=== PATIENT | male | born 1945 | race Caucasian/White ===

== ENCOUNTER 2017-02-11 07:08 | Day surgery (SDC) | payer MEDICARE, BC ==
[2017-02-08 08:23] VITALS: BMI 27.8
[~2017-02-11 07:08] MED LIST: LACTATED RINGERS 1,000 ML IV SCH
[2017-02-11] MEDS ORDERED: LIDOCAINE 1% 20 ML VIAL (10MG/ML) FOR IV START INTRADERMA ONE (07:33)
[2017-02-11 07:37] VITALS: TEMP 97.3
[2017-02-11] MEDS ORDERED: PROPOFOL 10 MG/ML 20 ML VIAL IV ONE (08:36)
--- NOTE | 2017-02-11 09:13 | P.PCN ---
Date of Procedure: 02/11/17 Procedure(s) Performed: Procedure: Colonoscopy and polypectomy. Preoperative diagnosis: Screening for neoplasia, patient has history of polyps. Postoperative diagnosis: 1. Rectal polyp snared but no large polyps or cancer. 2. Diverticulosis with no evidence of acute diverticulitis or strictures. 3. Low -grade internal hemorrhoids not bleeding at the time of this exam. Preparation: HalfLytely prep. Brief clinical history: The patient is a 71-year-old male who I have evaluated on multiple occasions in the past because of family history of colon cancer in his father and brother and personal history of polyps. His last exam was in December 2013. He has no abdominal complaints, bleeding or anemia. Procedure: With the patient on his left lateral decubitus position and after informed consent and adequate sedation, the perianal area was inspected and it did not show any fissures or fistulas. There were no masses felt on digital rectal examination. The Olympus CFQ 160L video colonoscope was then inserted in the rectum in the usual fashion and advanced to the cecum. There were multiple diverticular orifices seen scattered in the sigmoid and occasional rare small orifice on the right side but I saw no evidence of acute diverticulitis or strictures. The mucosa appeared healthy. There was a 1.5 cm polyp in the rectum, close to the anorectal junction, that was snared and removed piecemeal but there were no large polyps or cancer. In the retroflex view in the rectum and while withdrawing the endoscope, low-grade internal hemorrhoids were again noted with no evidence of bleeding. The patient tolerated the procedure well. Plan: The patient was reassured. Discussed dietary measures and local care for hemorrhoids. I am recommending repeat exam in 3 years. He will follow up with you as planned.
[2017-02-11 09:26] VITALS: BP 145/83; PULSE 67; RESP 16
== END 2017-02-11 09:53 | disposition home or self-care (01) ==
LOC: ORWHC2ENDO 07:08
DX: Z12.11 Encounter for screening for malignant neoplasm of colon (principal); Z86.010 Personal history of colon polyps; Z80.0 Family history of malignant neoplasm of digestive organs; D12.8 Benign neoplasm of rectum; K57.30 Diverticulosis of large intestine without perforation or abscess without bleeding; K64.8 Other hemorrhoids; I10 Essential (primary) hypertension; I25.10 Atherosclerotic heart disease of native coronary artery without angina pectoris; Z95.1 Presence of aortocoronary bypass graft; K21.9 Gastro-esophageal reflux disease without esophagitis; E03.9 Hypothyroidism, unspecified; Z85.46 Personal history of malignant neoplasm of prostate; Z79.82 Long term (current) use of aspirin; Z79.899 Other long term (current) drug therapy
CPT/HCPCS: 88305; 45385; J2704

== ENCOUNTER 2017-02-22 11:42 | Emergency (ER) | payer MEDICARE, BC ==
[2017-02-22] MEDS ORDERED: ONDANSETRON 4 MG/2 ML VIAL IVP STA (12:03)
[2017-02-22] MEDS ORDERED: PANTOPRAZOLE 40 MG/10 ML VIAL IVP STA (12:03)
[2017-02-22] MEDS ORDERED: SODIUM CHLORIDE 0.9% 1,000 ML IV STA ×2 (12:03)
--- NOTE | 2017-02-22 12:28 | ED ---
General Adult HPI - General Chief complaint: GI Bleed Stated complaint: blood stool Time Seen by Provider: 02/22/17 12:03 Source: patient, family, RN notes reviewed, old records reviewed Mode of arrival: ambulatory Limitations: no limitations - History of Present Illness Initial comments: This is a 71-year-old mallei for evaluation. Patient coming in for reduction of bright red blood per rectum. Patient does have recent history of colonoscopy , patient did have recent cold mask. Probable removal. Has had some episodic bleeding ever since the procedure for about 10 days he's had occasional bright red bloody bowel movements, patient also states he has history of hemorrhoids. No bowel pain no lightheadedness dizziness or weakness, syncope. Patient is not on blood thinners - Related Data Home Medications Medication Instructions Recorded Confirmed Aspirin 81 mg PO DAILY 06/22/14 02/22/17 Esomeprazole Magnesium [NexIUM] 40 mg PO HS 06/22/14 02/22/17 Ezetimibe/Simvastatin [Vytorin 1 tab PO DAILY 06/22/14 02/22/17 10-40 mg Tablet] Ibuprofen [Motrin] 800 mg PO BID 06/22/14 02/22/17 Imipramine [Tofranil] 10 mg PO DAILY 06/22/14 02/22/17 Ramipril 10 mg PO DAILY 06/22/14 02/22/17 Levothyroxine Sodium [Synthroid] 50 mcg PO DAILY 02/08/17 02/22/17 Calcium Polycarbophil [Fibercon] 625 mg PO BID 02/22/17 02/22/17 Fish Oil 600mg 600 mg PO BID 02/22/17 02/22/17 Potassium 550mg 550 mg PO DAILY 02/22/17 02/22/17 Allergies Allergy/AdvReac Type Severity Reaction Status Date / Time No Known Allergies Allergy Verified 02/22/17 12:29 Review of Systems ROS Statement: Those systems with pertinent positive or pertinent negative responses have been documented in the HPI. ROS Other: All systems not noted in ROS Statement are negative. Past Medical History Past Medical History: GERD/Reflux, Hyperlipidemia, Hypertension, Prostate Disorder, Thyroid Disorder History of Any Multi-Drug Resistant Organisms: None Reported Past Surgical History: Appendectomy, Coronary Bypass/CABG, Prostate Surgery Additional Past Surgical History / Comment(s): triple bypass 1998, Past Anesthesia/Blood Transfusion Reactions: No Reported Reaction Past Psychological History: No Psychological Hx Reported Smoking Status: Never smoker Past Alcohol Use History: Occasional Past Drug Use History: None Reported - Past Family History Father Family Medical History: Cancer General Exam Limitations: no limitations General appearance: alert, in no apparent distress Head exam: Present: atraumatic, normocephalic, normal inspection Eye exam: Present: normal appearance, PERRL, EOMI. Absent: scleral icterus, conjunctival injection, periorbital swelling ENT exam: Present: normal exam, mucous membranes moist Neck exam: Present: normal inspection. Absent: tenderness, meningismus, lymphadenopathy Respiratory exam: Present: normal lung sounds bilaterally. Absent: respiratory distress, wheezes, rales, rhonchi, stridor Cardiovascular Exam: Present: regular rate, normal rhythm, normal heart sounds. Absent: systolic murmur, diastolic murmur, rubs, gallop, clicks GI/Abdominal exam: Present: soft, normal bowel sounds. Absent: distended, tenderness, guarding, rebound, rigid Extremities exam: Present: normal inspection, full ROM, normal capillary refill. Absent: tenderness, pedal edema, joint swelling, calf tenderness Back exam: Present: normal inspection Neurological exam: Present: alert, oriented X3, CN II-XII intact Psychiatric exam: Present: normal affect, normal mood Skin exam: Present: warm, dry, intact, normal color. Absent: rash Course Vital Signs 02/22/17 02/22/17 02/22/17 11:54 13:13 15:30 Temperature 97.5 F L 97.8 F Pulse Rate 362 H 111 H 66 Respiratory 16 16 18 Rate Blood Pressure 138/68 127/71 137/67 O2 Sat by Pulse 97 97 96 Oximetry - Reevaluation(s) Reevaluation #1: Patient consulted regarding desire to keep in hospital and possible bleeding from where polyp was taken, patient states she would rather follow up as an outpatient EKG Findings - EKG Comments: EKG Findings:: EKG shows normal sinus rhythm at 63, MD 140, QRS 100, QTC 411 Medical Decision Making - Medical Decision Making 71 male here for evaluation of bleeding, bleeding status post colonoscopy, patient states he is in no acute distress, concern for causes of bleeding and would like to have GI evaluation, patient does not want to stay in the hospital will follow up as an outpatient - Lab Data Result diagrams: 02/22/17 12:15 02/22/17 12:15 Lab Results 02/22/17 02/22/17 02/22/17 Range/Units 12:15 12:15 12:15 WBC 5.0 (3.8-10.6) k/uL RBC 4.02 L (4.30-5.90) m/uL Hgb 13.0 (13.0-17.5) gm/dL Hct 39.5 (39.0-53.0) % MCV 98.1 (80.0-100.0) fL MCH 32.3 (25.0-35.0) pg MCHC 32.9 (31.0-37.0) g/dL RDW 13.2 (11.5-15.5) % Plt Count 245 (150-450) k/uL Neutrophils % 48 % Lymphocytes % 39 % Monocytes % 8 % Eosinophils % 2 % Basophils % 1 % Neutrophils # 2.4 (1.3-7.7) k/uL Lymphocytes # 1.9 (1.0-4.8) k/uL Monocytes # 0.4 (0-1.0) k/uL Eosinophils # 0.1 (0-0.7) k/uL Basophils # 0.0 (0-0.2) k/uL PT (9.0-12.0) sec INR (<1.1) APTT (22.0-30.0) sec Sodium 142 (137-145) mmol/L Potassium 4.5 (3.5-5.1) mmol/L Chloride 106 (98-107) mmol/L Carbon Dioxide 26 (22-30) mmol/L Anion Gap 10 mmol/L BUN 19 (9-20) mg/dL Creatinine 1.06 (0.66-1.25) mg/dL Est GFR (MDRD) Af Amer >60 (>60 ml/min/1.73 sqM) Est GFR (MDRD) Non-Af >60 (>60 ml/min/1.73 sqM) Glucose 85 (74-99) mg/dL Calcium 8.9 (8.4-10.2) mg/dL Magnesium 2.1 (1.6-2.3) mg/dL Total Bilirubin 0.6 (0.2-1.3) mg/dL AST 25 (17-59) U/L ALT 22 (21-72) U/L Alkaline Phosphatase 56 (38-126) U/L Total Creatine Kinase 102 (55-170) U/L CK-MB (CK-2) 1.3 (0.0-2.4) ng/mL CK-MB (CK-2) Rel Index 1.3 Troponin I <0.012 (0.000-0.034) ng/mL Total Protein 6.6 (6.3-8.2) g/dL Albumin 4.0 (3.5-5.0) g/dL Lipase 56 (23-300) U/L Blood Type Blood Type Recheck Antibody Screen Spec Expiration Date 02/22/17 02/22/17 Range/Units 12:15 12:15 WBC (3.8-10.6) k/uL RBC (4.30-5.90) m/uL Hgb (13.0-17.5) gm/dL Hct (39.0-53.0) % MCV (80.0-100.0) fL MCH (25.0-35.0) pg MCHC (31.0-37.0) g/dL RDW (11.5-15.5) % Plt Count (150-450) k/uL Neutrophils % % Lymphocytes % % Monocytes % % Eosinophils % % Basophils % % Neutrophils # (1.3-7.7) k/uL Lymphocytes # (1.0-4.8) k/uL Monocytes # (0-1.0) k/uL Eosinophils # (0-0.7) k/uL Basophils # (0-0.2) k/uL PT 10.1 (9.0-12.0) sec INR 1.0 (<1.1) APTT 24.2 (22.0-30.0) sec Sodium (137-145) mmol/L Potassium (3.5-5.1) mmol/L Chloride (98-107) mmol/L Carbon Dioxide (22-30) mmol/L Anion Gap mmol/L BUN (9-20) mg/dL Creatinine (0.66-1.25) mg/dL Est GFR (MDRD) Af Amer (>60 ml/min/1.73 sqM) Est GFR (MDRD) Non-Af (>60 ml/min/1.73 sqM) Glucose (74-99) mg/dL Calcium (8.4-10.2) mg/dL Magnesium (1.6-2.3) mg/dL Total Bilirubin (0.2-1.3) mg/dL AST (17-59) U/L ALT (21-72) U/L Alkaline Phosphatase (38-126) U/L Total Creatine Kinase (55-170) U/L CK-MB (CK-2) (0.0-2.4) ng/mL CK-MB (CK-2) Rel Index Troponin I (0.000-0.034) ng/mL Total Protein (6.3-8.2) g/dL Albumin (3.5-5.0) g/dL Lipase (23-300) U/L Blood Type O Positive Blood Type Recheck No Antibody Screen NEGATIVE Spec Expiration Date 02/25/2017 - 2314 Disposition Clinical Impression: Gastrointestinal hemorrhage, Lower gastrointestinal hemorrhage Disposition: HOME SELF-CARE Condition: Fair Instructions: Gastrointestinal Bleeding (ED) Referrals: Reji Singletray MD [Primary Care Provider] - 1-2 days
[2017-02-22] MEDS ORDERED: SODIUM CHLORIDE 0.9% 1,000 ML IV ONE (12:30)
[2017-02-22 12:38] LABS: Basophils % (A) 1 %; CH 32.5; CHCM 33.3; Eosinophils # (A) 0.1 k/uL (0-0.7); Eosinophils % (A) 2 %; HCT 39.5 % (39.0-53.0); HDW 2.68; Luc # (Auto) 0.17; Luc % (Auto) 3; Lymphocytes # (A) 1.9 k/uL (1.0-4.8); Lymphocytes % (A) 39 %; MCH 32.3 pg (25.0-35.0); MCHC 32.9 g/dL (31.0-37.0); MCV 98.1 fL (80.0-100.0); Mean Platelet Volume 7.3; Monocytes # (A) 0.4 k/uL (0-1.0); Monocytes % (A) 8 %; Neutrophils # (A) 2.4 k/uL (1.3-7.7); Neutrophils % (A) 48 %; RBC 4.02 m/uL (4.30-5.90); RDW 13.2 % (11.5-15.5); WBC (Perox) 5.09
[2017-02-22 12:44] LABS: Prothrombin Time 10.1 sec (9.0-12.0)
[2017-02-22 12:45] LABS: Partial Thromboplastin Time 24.2 sec (22.0-30.0)
[2017-02-22 13:03] LABS: Creatine Kinase 102 U/L (55-170)
[2017-02-22 13:05] LABS: ALT 22 U/L (21-72); AST 25 U/L (17-59); Alkaline Phosphatase 56 U/L (38-126); Anion Gap 10 mmol/L; Blood Urea Nitrogen 19 mg/dL (9-20); Calcium 8.9 mg/dL (8.4-10.2); Carbon Dioxide 26 mmol/L (22-30); Chloride 106 mmol/L (98-107); Glucose 85 mg/dL (74-99); Magnesium 2.1 mg/dL (1.6-2.3); Non-African American GFR(MDRD) >60 (>60 ml/min/1.73 sqM); Potassium 4.5 mmol/L (3.5-5.1); Sodium 142 mmol/L (137-145); Total Bilirubin 0.6 mg/dL (0.2-1.3); Total Protein 6.6 g/dL (6.3-8.2)
[2017-02-22 13:16] LABS: Creatine Kinase MB 1.3 ng/mL (0.0-2.4); Troponin I <0.012 ng/mL (0.000-0.034)
[2017-02-22 15:46] VITALS: BP 137/67; PULSE 66; RESP 18; TEMP 97.8
[2017-02-22] MEDS ORDERED: PANTOPRAZOLE 40 MG/10 ML VIAL IVP SCH (21:00)
== END 2017-02-22 15:30 | disposition home or self-care (01) ==
LOC: EC 11:42
DX: K92.2 Gastrointestinal hemorrhage, unspecified (principal); K21.9 Gastro-esophageal reflux disease without esophagitis; E78.5 Hyperlipidemia, unspecified; I10 Essential (primary) hypertension; E07.9 Disorder of thyroid, unspecified; Z98.890 Other specified postprocedural states; Z90.49 Acquired absence of other specified parts of digestive tract; Z79.82 Long term (current) use of aspirin; Z79.899 Other long term (current) drug therapy; Z79.1 Long term (current) use of non-steroidal anti-inflammatories (NSAID)
CPT/HCPCS: 96361 ×3; 96374 ×2; 96375 ×2; 99285 ×2; 36415; 93005; 86900; 86901; 80053; 82550; 82553; 83690; 83735; 84484; 85025; 85610; 85730; 86850; J2405; C9113

== ENCOUNTER 2017-02-26 11:43 | Day surgery (SDC) | payer MEDICARE, BC ==
[2017-02-26] MEDS ORDERED: NA PHOS,M-B/NA PHOS,DI-BA 133 ML ENEMA RECTAL ONE (12:15)
[2017-02-26 12:37] VITALS: TEMP 97
[2017-02-26] MEDS ORDERED: LACTATED RINGERS 1,000 ML IV ONE (12:39)
[2017-02-26] MEDS ORDERED: LIDOCAINE 1% 20 ML VIAL (10MG/ML) FOR IV START INTRADERMA ONE (12:39)
[2017-02-26] MEDS: NA PHOS,M-B/NA PHOS,DI-BA 133 ML ENEMA RECTAL ONE ×2 (12:45→13:03)
[2017-02-26] MEDS ORDERED: LIDOCAINE 1% INJ 10MG/ML (20 ML MDV) ONE (13:22)
[2017-02-26] MEDS ORDERED: PROPOFOL 10 MG/ML 20 ML VIAL IV ONE (13:22)
--- NOTE | 2017-02-26 14:06 | P.PCN ---
Date of Procedure: 02/26/17 Procedure(s) Performed: Procedure: Flexible sigmoidoscopy. Preoperative diagnosis: Persistent rectal bleeding since polypectomy 02/11/2017. Postoperative diagnosis: 1. Sigmoid diverticulosis with no evidence of acute diverticulitis or bleeding. 2. Low-grade internal hemorrhoids with no active bleeding at the time of this exam. 2. A small area of minimal friability at the anorectal junction not spontaneously bleeding. Preparation: 2 Fleet enemas. Sedation: Was provided by anesthesia. Brief clinical history: The patient is a 71-year-old male who I have evaluated on multiple occasions in the past because of family history of colon cancer in his father and brother and personal history of polyps. His last exam was February 11, 2017. He was found to have a 1.5 cm rectal polyp close to the anorectal junction that was removed with the snare piecemeal. He had diverticulosis of the colon and low-grade internal hemorrhoids that were not bleeding. The patient has been having fresh bleeding per rectum since his procedure on a daily basis and was in the emergency room over the weekend and came to see me in the office yesterday. I scheduled this evaluation to assess for the cause of his bleeding for possible intervention. Procedure: With the patient on his left lateral decubitus position and after informed consent and adequate sedation, the perianal area was inspected and it did not show any fissures or fistulas. There were no masses felt on digital rectal examination. The Olympus flexible video sigmoidoscope was used and was inserted in the rectum in the usual fashion and advanced to the mid sigmoid. There were multiple diverticular orifices seen scattered in the sigmoid, but I saw no evidence of acute diverticulitis or bleeding. Normal color fecal material was seen in the proximal areas examined. The mucosa appeared healthy. There was an area of minimal friability at the anorectal junction but it was not showing any evidence of spontaneous bleeding. Low-grade internal hemorrhoids were again noted in both the forward and in the retroflex view in the rectum without any evidence of bleeding. I took multiple pictures then the endoscope was withdrawn. The patient tolerated the procedure well. Plan: The patient will be reassured. I will ask that he stays off ibuprofen until the bleeding is consistently gone. I will give a prescription for Proctocort suppositories which he can use at bed time for 7-10 days then as needed. He will contact me if his problem persists. I will keep you updated on his progress.
[2017-02-26 14:08] VITALS: BP 143/80; PULSE 63; RESP 20
== END 2017-02-26 14:38 | disposition home or self-care (01) ==
LOC: ORWHC2ENDO 11:43
DX: K57.30 Diverticulosis of large intestine without perforation or abscess without bleeding (principal); K64.8 Other hemorrhoids; Z87.19 Personal history of other diseases of the digestive system; K21.9 Gastro-esophageal reflux disease without esophagitis; I10 Essential (primary) hypertension; E78.5 Hyperlipidemia, unspecified; E07.9 Disorder of thyroid, unspecified; Z95.1 Presence of aortocoronary bypass graft; Z79.1 Long term (current) use of non-steroidal anti-inflammatories (NSAID); Z79.82 Long term (current) use of aspirin; Z79.899 Other long term (current) drug therapy
CPT/HCPCS: 45330; J2001; J2704

== ENCOUNTER 2017-05-19 14:25 | Emergency (ER) | payer MEDICARE, BC ==
[2017-05-19] MEDS ORDERED: SODIUM CHLORIDE 0.9% 1,000 ML IV STA (15:46)
--- NOTE | 2017-05-19 16:30 | XR ---
EXAMINATION TYPE: XR chest 1V portable DATE OF EXAM: 05/19/2017 COMPARISON: NONE INDICATION: Fever x1 month TECHNIQUE: Single frontal view of the chest is obtained. FINDINGS: The heart size is normal. The pulmonary vasculature is normal. There is a mild infiltrate within the right lower lobe. Correlate for atelectasis or pneumonia. IMPRESSION: 1. Conical correlation recommended for mild atelectasis or pneumonia right lung base
--- NOTE | 2017-05-19 16:37 | ED ---
Fever HPI - General Chief Complaint: Fever Stated Complaint: Ill, tired Time Seen by Provider: 05/19/17 15:29 Source: patient Mode of arrival: ambulatory Limitations: no limitations - History of Present Illness Initial Comments: Patient's a 72-year-old male presenting with fatigue and fever. Fatigue has been going on for the past month. Patient states he was playing golf yesterday with his sons and was unable to complete 18 holes. He had to stop at the 11th hole. Patient states today he noticed a temperature T-max 101F. Patient takes Motrin regularly for his general pain aches and pains. Patient denies headache, neck pain, cough, runny nose, congestion, shortness breath, chest pain. He denies abdominal pain, nausea, vomiting, diarrhea. He denies dysuria. - Related Data Home Medications Medication Instructions Recorded Confirmed Aspirin 81 mg PO HS 06/22/14 05/19/17 Esomeprazole Magnesium [NexIUM] 40 mg PO HS 06/22/14 05/19/17 Ezetimibe/Simvastatin [Vytorin 1 tab PO HS 06/22/14 05/19/17 10-40 mg Tablet] Ibuprofen [Motrin] 800 mg PO BID 06/22/14 05/19/17 Imipramine [Tofranil] 10 mg PO HS 06/22/14 05/19/17 Ramipril 10 mg PO DAILY 06/22/14 05/19/17 Levothyroxine Sodium [Synthroid] 50 mcg PO DAILY 02/08/17 05/19/17 Calcium Polycarbophil [Fibercon] 625 mg PO BID 02/22/17 05/19/17 Fish Oil 600mg 600 mg PO BID 02/22/17 05/19/17 Potassium 550mg 550 mg PO DAILY 02/22/17 05/19/17 Previous Rx's Medication Instructions Recorded Azithromycin [Zithromax] 500 mg PO DAILY #5 tab 05/19/17 Allergies Allergy/AdvReac Type Severity Reaction Status Date / Time No Known Allergies Allergy Verified 05/19/17 15:44 Review of Systems ROS Statement: Those systems with pertinent positive or pertinent negative responses have been documented in the HPI. Constitutional: +fever and no chills. + Fatigue HENT: No congestion, no rhinorrhea and no sore throat. Eyes: No discharge and no redness. Respiratory: No cough and no shortness of breath. Cardiovascular: No chest pain and no palpitations. Gastrointestinal: No nausea, no vomiting, no abdominal pain and no diarrhea. Genitourinary: No dysuria and no hematuria. Musculoskeletal: No back pain and no arthralgias. Skin: No pallor and no rash. Neurological: No dizziness and No headaches. ROS Other: All systems not noted in ROS Statement are negative. Past Medical History Past Medical History: GERD/Reflux, Hyperlipidemia, Hypertension, Prostate Disorder, Thyroid Disorder History of Any Multi-Drug Resistant Organisms: None Reported Past Surgical History: Appendectomy, Coronary Bypass/CABG, Prostate Surgery Additional Past Surgical History / Comment(s): triple bypass 1998, Past Anesthesia/Blood Transfusion Reactions: No Reported Reaction Past Psychological History: No Psychological Hx Reported Smoking Status: Never smoker Past Alcohol Use History: Occasional Past Drug Use History: None Reported - Past Family History Father Family Medical History: Cancer General Exam - General Exam Comments Initial Comments: Constitutional: Patient appears well-developed and well-nourished. No distress. Head: Normocephalic and atraumatic. Eyes: Conjunctivae and EOM are normal. Right eye exhibits no discharge. Left eye exhibits no discharge. No scleral icterus. Neck: Normal range of motion. Neck supple. Cardiovascular: Normal rate and regular rhythm. No murmur heard. Pulmonary/Chest: Effort normal and breath sounds normal. No respiratory distress. No wheezes. Abdominal: Soft. No distension. There is no tenderness. There is no rebound and no guarding. Musculoskeletal: Normal range of motion. No edema or tenderness. Neurological: Patient alert and oriented to person, place, and time. Skin: Skin is warm and dry. Not diaphoretic. Nursing notes and vitals reviewed. Limitations: no limitations Course Vital Signs 05/19/17 05/19/17 05/19/17 14:45 15:41 17:22 Temperature 99.0 F 98.1 F 97.3 F L Pulse Rate 70 86 69 Respiratory 20 16 16 Rate Blood Pressure 120/66 119/66 156/71 O2 Sat by Pulse 99 98 96 Oximetry - Reevaluation(s) Reevaluation #1: 05/19/17 18:11 Patient updated results and concerns for pneumonia. Medical Decision Making - Medical Decision Making Patient's a well-appearing 72-year-old male presenting with fever times one day and fatigue times one month. Physical exam is unremarkable. Patient is afebrile although he takes Motrin around the clock and most recently prior to arrival. Patient states T-max at home was 101F. chest x-ray concerning for right middle lobe pneumonia. Again patient is well-appearing without tachypnea , elevated BUN, confusion, hypotension. Patient can be started outpatient management for the acquired pneumonia on azithromycin. Patient's agreeable to this and to return for any worsening of symptoms including inability to keep antibiotics down.Prior to discharge, patient was resting comfortably in bed. Course of stay improved. Denies pain. Discussed physical exam and diagnostic tests with patient. Questions answered and patient is agreeable to discharge with close follow up with Primary Care Physician. Instructed to return to Emergency Department if symptoms worsen. - Lab Data Result diagrams: 05/19/17 16:25 05/19/17 16:25 Lab Results 05/19/17 05/19/17 05/19/17 Range/Units 16:25 16:25 16:25 WBC 7.7 (3.8-10.6) k/uL RBC 4.03 L (4.30-5.90) m/uL Hgb 13.1 (13.0-17.5) gm/dL Hct 39.1 (39.0-53.0) % MCV 97.2 (80.0-100.0) fL MCH 32.5 (25.0-35.0) pg MCHC 33.5 (31.0-37.0) g/dL RDW 13.6 (11.5-15.5) % Plt Count 182 (150-450) k/uL Neutrophils % 72 % Lymphocytes % 17 % Monocytes % 7 % Eosinophils % 0 % Basophils % 0 % Neutrophils # 5.5 (1.3-7.7) k/uL Lymphocytes # 1.3 (1.0-4.8) k/uL Monocytes # 0.6 (0-1.0) k/uL Eosinophils # 0.0 (0-0.7) k/uL Basophils # 0.0 (0-0.2) k/uL Sodium 140 (137-145) mmol/L Potassium 4.3 (3.5-5.1) mmol/L Chloride 104 (98-107) mmol/L Carbon Dioxide 25 (22-30) mmol/L Anion Gap 11 mmol/L BUN 16 (9-20) mg/dL Creatinine 1.00 (0.66-1.25) mg/dL Est GFR (MDRD) Af Amer >60 (>60 ml/min/1.73 sqM) Est GFR (MDRD) Non-Af >60 (>60 ml/min/1.73 sqM) Glucose 101 H (74-99) mg/dL Plasma Lactic Acid Ike (0.7-2.0) mmol/L Calcium 8.8 (8.4-10.2) mg/dL Magnesium 2.1 (1.6-2.3) mg/dL Total Bilirubin 0.7 (0.2-1.3) mg/dL AST 32 (17-59) U/L ALT 37 (21-72) U/L Alkaline Phosphatase 57 (38-126) U/L Total Protein 6.2 L (6.3-8.2) g/dL Albumin 3.6 (3.5-5.0) g/dL TSH 0.750 (0.465-4.680) mIU/L Urine Color Urine Appearance (Clear) Urine pH (5.0-8.0) Ur Specific [place] (1.001-1.035) Urine Protein (Negative) Urine Glucose (UA) (Negative) Urine Ketones (Negative) Urine Blood (Negative) Urine Nitrite (Negative) Urine Bilirubin (Negative) Urine Urobilinogen (<2.0) mg/dL Ur Leukocyte Esterase (Negative) 05/19/17 05/19/17 Range/Units 16:25 16:40 WBC (3.8-10.6) k/uL RBC (4.30-5.90) m/uL Hgb (13.0-17.5) gm/dL Hct (39.0-53.0) % MCV (80.0-100.0) fL MCH (25.0-35.0) pg MCHC (31.0-37.0) g/dL RDW (11.5-15.5) % Plt Count (150-450) k/uL Neutrophils % % Lymphocytes % % Monocytes % % Eosinophils % % Basophils % % Neutrophils # (1.3-7.7) k/uL Lymphocytes # (1.0-4.8) k/uL Monocytes # (0-1.0) k/uL Eosinophils # (0-0.7) k/uL Basophils # (0-0.2) k/uL Sodium (137-145) mmol/L Potassium (3.5-5.1) mmol/L Chloride (98-107) mmol/L Carbon Dioxide (22-30) mmol/L Anion Gap mmol/L BUN (9-20) mg/dL Creatinine (0.66-1.25) mg/dL Est GFR (MDRD) Af Amer (>60 ml/min/1.73 sqM) Est GFR (MDRD) Non-Af (>60 ml/min/1.73 sqM) Glucose (74-99) mg/dL Plasma Lactic Acid Ike 0.7 (0.7-2.0) mmol/L Calcium (8.4-10.2) mg/dL Magnesium (1.6-2.3) mg/dL Total Bilirubin (0.2-1.3) mg/dL AST (17-59) U/L ALT (21-72) U/L Alkaline Phosphatase (38-126) U/L Total Protein (6.3-8.2) g/dL Albumin (3.5-5.0) g/dL TSH (0.465-4.680) mIU/L Urine Color Yellow Urine Appearance Clear (Clear) Urine pH 6.0 (5.0-8.0) Ur Specific [place] 1.005 (1.001-1.035) Urine Protein Negative (Negative) Urine Glucose (UA) Negative (Negative) Urine Ketones Negative (Negative) Urine Blood Negative (Negative) Urine Nitrite Negative (Negative) Urine Bilirubin Negative (Negative) Urine Urobilinogen <2.0 (<2.0) mg/dL Ur Leukocyte Esterase Negative (Negative) 05/19/17 16:33 [address] 64[address] NSR. No ST-T wave changes. MA internal normal . iRBBB. QTc duration normal. Disposition Clinical Impression: Community acquired pneumonia Disposition: HOME SELF-CARE Condition: Good Instructions: Fever in Adults (ED), Community Acquired Pneumonia (ED) Prescriptions: Azithromycin [Zithromax] 500 mg PO DAILY #5 tab Referrals: Reji Singletary MD [Primary Care Provider] - 1-2 days
[2017-05-19 16:38] LABS: Basophils % (A) 0 %; CH 32.2; CHCM 33.2; Eosinophils % (A) 0 %; HCT 39.1 % (39.0-53.0); HDW 2.38; HGB 13.1 gm/dL (13.0-17.5); Luc # (Auto) 0.22; Luc % (Auto) 3; Lymphocytes # (A) 1.3 k/uL (1.0-4.8); Lymphocytes % (A) 17 %; MCH 32.5 pg (25.0-35.0); MCHC 33.5 g/dL (31.0-37.0); MCV 97.2 fL (80.0-100.0); Mean Platelet Volume 7.4; Monocytes # (A) 0.6 k/uL (0-1.0); Monocytes % (A) 7 %; Neutrophils # (A) 5.5 k/uL (1.3-7.7); Neutrophils % (A) 72 %; RBC 4.03 m/uL (4.30-5.90); RDW 13.6 % (11.5-15.5); WBC 7.7 k/uL (3.8-10.6); WBC (Perox) 8.05
[2017-05-19 16:48] LABS: ALT 37 U/L (21-72); AST 32 U/L (17-59); Alkaline Phosphatase 57 U/L (38-126); Anion Gap 11 mmol/L; Blood Urea Nitrogen 16 mg/dL (9-20); Calcium 8.8 mg/dL (8.4-10.2); Carbon Dioxide 25 mmol/L (22-30); Chloride 104 mmol/L (98-107); Glucose 101 mg/dL (74-99); Non-African American GFR(MDRD) >60 (>60 ml/min/1.73 sqM); Potassium 4.3 mmol/L (3.5-5.1); Sodium 140 mmol/L (137-145); Total Bilirubin 0.7 mg/dL (0.2-1.3); Total Protein 6.2 g/dL (6.3-8.2)
[2017-05-19 16:53] LABS: Appearance,Urine Clear (Clear); Bilirubin,Urine Negative (Negative); Glucose,Urine (UA) Negative (Negative); Ketones,Urine Negative (Negative); Leukocyte Esterase,Urine Negative (Negative); Nitrite,Urine Negative (Negative); Protein,Urine Negative (Negative); Specific Gravity,Urine 1.005 (1.001-1.035); UA Billing (MACRO vs. MICRO) CHEM; Urobilinogen,Urine <2.0 mg/dL (<2.0)
[2017-05-19 18:20] VITALS: BP 166/74; PULSE 75; RESP 18; TEMP 97.6
== END 2017-05-19 18:40 | disposition home or self-care (01) ==
LOC: EC 14:25
DX: J18.9 Pneumonia, unspecified organism (principal); I10 Essential (primary) hypertension; E07.9 Disorder of thyroid, unspecified; E78.5 Hyperlipidemia, unspecified; K21.9 Gastro-esophageal reflux disease without esophagitis; Z79.82 Long term (current) use of aspirin; Z79.1 Long term (current) use of non-steroidal anti-inflammatories (NSAID); Z79.899 Other long term (current) drug therapy
CPT/HCPCS: 36415; 71010; 80053; 81003; 83605; 83735; 84443; 85025; 87040; 87086; 93005; 96360; 99283

== ENCOUNTER → 2017-09-23 | Outpatient (CLI) | payer MEDICARE, BC ==
[2017-09-23 08:50] LABS: Basophils % (A) 1 %; CH 31.5; CHCM 32.4; Eosinophils # (A) 0.2 k/uL (0-0.7); Eosinophils % (A) 4 %; HCT 42.3 % (39.0-53.0); HDW 2.38; HGB 13.6 gm/dL (13.0-17.5); Luc # (Auto) 0.15; Luc % (Auto) 3; Lymphocytes # (A) 2.4 k/uL (1.0-4.8); Lymphocytes % (A) 44 %; MCH 31.4 pg (25.0-35.0); MCHC 32.1 g/dL (31.0-37.0); MCV 97.6 fL (80.0-100.0); Mean Platelet Volume 7.3; Monocytes # (A) 0.4 k/uL (0-1.0); Monocytes % (A) 8 %; Neutrophils # (A) 2.2 k/uL (1.3-7.7); Neutrophils % (A) 40 %; RBC 4.34 m/uL (4.30-5.90); RDW 13.7 % (11.5-15.5); WBC 5.3 k/uL (3.8-10.6); WBC (Perox) 5.04
[2017-09-23 10:55] LABS: Hemoglobin A1C 5.7 % (4.2-6.1)
[2017-09-23 12:56] LABS: ALT 24 U/L (21-72); AST 24 U/L (17-59); Alkaline Phosphatase 60 U/L (38-126); Anion Gap 8 mmol/L; Blood Urea Nitrogen 19 mg/dL (9-20); Calcium 8.8 mg/dL (8.4-10.2); Carbon Dioxide 25 mmol/L (22-30); Chloride 108 mmol/L (98-107); Cholesterol 149 mg/dL (<200); Glucose 98 mg/dL (74-99); HDL Cholesterol 57 mg/dL (40-60); Non-African American GFR(MDRD) >60 (>60 ml/min/1.73 sqM); Potassium 4.5 mmol/L (3.5-5.1); Sodium 141 mmol/L (137-145); Total Bilirubin 0.5 mg/dL (0.2-1.3); Total Protein 6.1 g/dL (6.3-8.2)
[2017-09-23 13:11] LABS: Prostate Specific Antigen <0.10 ng/mL (0.00-4.00)
== END | disposition home or self-care (01) ==
LOC: LABWHC1 07:10
PROVIDERS: ATTEND Nurse Practitioner Family
DX: E78.5 Hyperlipidemia, unspecified (principal); I10 Essential (primary) hypertension; N40.0 Benign prostatic hyperplasia without lower urinary tract symptoms; E03.9 Hypothyroidism, unspecified; R73.9 Hyperglycemia, unspecified
CPT/HCPCS: 36415; 80053; 80061; 83036; 83735; 84153; 84439; 84443; 85025

== ENCOUNTER → 2019-08-20 | Outpatient (CLI) | payer MEDICARE, BC ==
[2019-08-20 09:27] LABS: Basophils % (A) 1 %; Eosinophils # (A) 0.1 k/uL (0-0.7); Eosinophils % (A) 3 %; HCT 39.2 % (39.0-53.0); HGB 12.9 gm/dL (13.0-17.5); Lymphocytes # (A) 2.7 k/uL (1.0-4.8); Lymphocytes % (A) 54 %; MCH 31.9 pg (25.0-35.0); MCHC 32.8 g/dL (31.0-37.0); MCV 97.3 fL (80.0-100.0); Mean Platelet Volume 7.2; Monocytes # (A) 0.3 k/uL (0-1.0); Monocytes % (A) 6 %; Neutrophils # (A) 1.7 k/uL (1.3-7.7); Neutrophils % (A) 34 %; Platelet Count 211 k/uL (150-450); RBC 4.03 m/uL (4.30-5.90); RDW 15.4 % (11.5-15.5); WBC 5.1 k/uL (3.8-10.6)
[2019-08-20 17:40] LABS: African American GFR (CKD) 84.4 (60.0-200.0); Albumin 3.9 g/dL (3.80-4.90); Albumin/Globulin Ratio 2.29 (1.60-3.17); Anion Gap 5.3 mmol/L (4.00-12.00); Calcium 8.8 mg/dL (8.7-10.3); Carbon Dioxide 25.7 mmol/L (21.6-31.8); Chol/HDL Ratio 2.54; Globulin 1.7 g/dL (1.6-3.3); LDL Cholesterol,Calculated 90.6 mg/dL (0.0-131.0); Potassium 4.4 mmol/L (3.5-5.5); Total Bilirubin 0.7 mg/dL (0.3-1.2); Total Protein 5.6 g/dL (6.2-8.2); VLDL Calculation 14.4 mg/dL (5.00-40.00)
[2019-08-20 21:37] LABS: Hemoglobin A1C 5.7 % (4.0-6.0)
== END | disposition home or self-care (01) ==
LOC: LABWHC1 08:34
PROVIDERS: ATTEND Internal Medicine Geriatric Medicine
DX: I10 Essential (primary) hypertension (principal); E78.2 Mixed hyperlipidemia; N40.0 Benign prostatic hyperplasia without lower urinary tract symptoms; E03.9 Hypothyroidism, unspecified; R73.9 Hyperglycemia, unspecified
CPT/HCPCS: 36415; 80053; 80061; 83036; 84153; 84439; 84443; 85025

== ENCOUNTER → 2019-10-15 | Outpatient (CLI) | payer MEDICARE, BC ==
--- NOTE | 2019-10-15 14:40 | XR ---
EXAMINATION TYPE: XR chest 2V DATE OF EXAM: 10/15/2019 COMPARISON: 05/19/2017 TECHNIQUE: PA and lateral views submitted. HISTORY: Pain FINDINGS: Right perihilar and lower lobe subsegmental areas of consolidation are stable. Heart is enlarged and is postsurgical change. No pneumothorax. Arthropathy of the shoulders. No overt failure. Hyperinflati on suggests COPD. Hypertrophic and degenerative change of the spine. IMPRESSION: 1. Right perihilar and lower lobe infiltrate.
== END | disposition home or self-care (01) ==
LOC: RADXRMAIN 14:20
PROVIDERS: ATTEND Psychiatry & Neurology Neurology
DX: Z01.818 Encounter for other preprocedural examination (principal); R91.8 Other nonspecific abnormal finding of lung field; Z87.74 Personal history of (corrected) congenital malformations of heart and circulatory system
CPT/HCPCS: 71046

== ENCOUNTER → 2019-11-26 | Outpatient (CLI) | payer MEDICARE, BC ==
[2019-11-26 23:14] LABS: African American GFR (CKD) 61.4 (60.0-200.0); Albumin/Globulin Ratio 2.35 (1.60-3.17); Anion Gap 7.1 mmol/L (4.00-12.00); BUN/Creat Ratio 31.54 Ratio (12.00-20.00); Calcium 9.2 mg/dL (8.7-10.3); Carbon Dioxide 27.9 mmol/L (21.6-31.8); Globulin 1.7 g/dL (1.6-3.3); Potassium 4.2 mmol/L (3.5-5.5); Total Bilirubin 0.4 mg/dL (0.3-1.2); Total Protein 5.7 g/dL (6.2-8.2)
== END | disposition home or self-care (01) ==
LOC: LABWHC1 15:00
PROVIDERS: ATTEND Internal Medicine Interventional Cardiology
DX: I10 Essential (primary) hypertension (principal)
CPT/HCPCS: 36415; 80053

== ENCOUNTER → 2019-12-10 | Outpatient (CLI) | payer MEDICARE, BC ==
[2019-12-10 17:03] LABS: African American GFR (CKD) 75.2 (60.0-200.0); Anion Gap 8.3 mmol/L (4.00-12.00); BUN/Creat Ratio 25.45 Ratio (12.00-20.00); Calcium 8.8 mg/dL (8.7-10.3); Carbon Dioxide 25.7 mmol/L (21.6-31.8); Non-African American GFR(CKD) 64.9 (60.0-200.0); Potassium 4.4 mmol/L (3.5-5.5)
== END | disposition home or self-care (01) ==
LOC: LABWHC1 09:04
PROVIDERS: ATTEND Nurse Practitioner Adult Health
DX: I10 Essential (primary) hypertension (principal)
CPT/HCPCS: 36415; 80048

== ENCOUNTER → 2019-12-23 | Outpatient (CLI) | payer MEDICARE, BC ==
[2019-12-23 16:19] LABS: African American GFR (CKD) 84.4 (60.0-200.0); Anion Gap 7.3 mmol/L (4.00-12.00); Calcium 9.3 mg/dL (8.7-10.3); Carbon Dioxide 26.7 mmol/L (21.6-31.8); Non-African American GFR(CKD) 72.8 (60.0-200.0); Potassium 4.2 mmol/L (3.5-5.5)
== END | disposition home or self-care (01) ==
LOC: LABWHC1 10:07
PROVIDERS: ATTEND Nurse Practitioner Adult Health
DX: I12.9 Hypertensive chronic kidney disease with stage 1 through stage 4 chronic kidney disease, or unspecified chronic kidney disease (principal); N18.9 Chronic kidney disease, unspecified; R60.0 Localized edema
CPT/HCPCS: 36415; 80048

== ENCOUNTER → 2023-08-13 | Outpatient (CLI) | payer MEDICARE, BC | END | disposition home or self-care (01) | LOC: LABWHC1 10:27 | PROVIDERS: ATTEND Urology | DX: Z53.9 Procedure and treatment not carried out, unspecified reason (principal) ==

== ENCOUNTER → 2025-05-31 | Outpatient (CLI) | payer MEDICARE, OTHER ==
--- NOTE | 2025-05-31 20:42 | MR ---
EXAMINATION TYPE: MR lumbar spine wo/w con DATE OF EXAM: 05/31/2025 8:20 PM COMPARISON: None. CLINICAL INDICATION: Male, 80 years old with history of M48.07, Low back pain x2-3 years, Hx of back surgery 5-10 years ago IV Contrast: 9 cc Gadobutrol TECHNIQUE: Multiplanar, multisequence images of the lumbar spine were acquired without and with 9 mL intravenous Gadobutrol gadolinium contrast. FINDINGS: Alignment: The lumbar vertebral bodies have preserved heights. Grade 1 retrolisthesis of L2 on L3 wit h anterior osteophytosis. Cord: The conus medullaris and the distal spinal cord appear unremarkable with regards to their signa l intensity and morphology. Bones/Discs: Postsurgical changes from posterior lumbar fusion with bilateral pedicular screws and ro ds involving L4-L5. This creates susceptibility artifact which limits evaluation. Disc fusion cage at this level. Small Schmorl's node involving the inferior endplate of the T11 vertebral body with some surrounding bone marrow edema and enhancement. Type II Modic changes involving the endplates around the L2-L3 disc. Type I Modic changes involving the anterior aspect of the endplates of the L1-L2 disc with some enhancement. Multilevel disc desiccation with prominent disc height loss at L2-L3. T12-L1: No disc herniation. No significant spinal canal or neural foraminal stenosis. L1-L2: Small central disc protrusion superimposed upon a broad-based disc bulge without significant s clarke canal stenosis. No significant neural foraminal stenosis. L2-L3: Grade 1 retrolisthesis. No significant spinal canal stenosis. Mild left neural foraminal steno sis. The right neural foramen is patent. L3-L4: Broad-based disc bulge without significant spinal canal stenosis. Right-sided facet arthropath y. Moderate to severe right and mild left neural foraminal stenosis. L4-L5: Postsurgical changes with laminectomy. No significant spinal canal stenosis. No significant ne ural foraminal stenosis. L5-S1: Broad-based disc bulge with ligamentum flavum buckling. No significant spinal canal stenosis. Mild bilateral neuroforaminal stenosis. Other findings: None. IMPRESSION: 1. Postsurgical changes from posterior lumbar fusion at L4-L5. No evidence for significant spinal ca nal stenosis. 2. Multilevel degenerative disc disease as described above. Most prominent at L3-L4. 3. Acute Schmorl's node involving the inferior endplate of the T11 vertebral body. [facility], , 05/31/2025 8:39 PM
== END | disposition home or self-care (01) ==
LOC: RADMRIMAIN 19:45
PROVIDERS: ATTEND Internal Medicine Geriatric Medicine
DX: M48.07 Spinal stenosis, lumbosacral region (principal); M51.360 Other intervertebral disc degeneration, lumbar region with discogenic back pain only; Z98.1 Arthrodesis status
CPT/HCPCS: 72158